=== PATIENT | female | born 1980 | race African-American/Black ===

== ENCOUNTER 2016-04-23 06:30 | Emergency (ER) | payer MEDICAID, OTHER ==
[~2016-04-23] VITALS: Ht 177.8 cm; Wt 125.0 kg
[~2016-04-23 06:30] MED LIST: CYCL-36 PO; IBUP800T23 PO; METH750T2 PO; OSEL75 PO
[2016-04-23 06:32] VITALS: BP 153/83; PULSE 73; RESP 16; TEMP 98.6; O2SAT 98
[2016-04-23 06:35] VITALS: TEMP 97.7; O2SAT 97
--- NOTE | 2016-04-23 07:38 | PD ---
HPI Chief Complaint: ENT Complaint Time Seen by Provider: 07:36 Travel History International Travel<30 days: No Contact w/Intl Traveler<30days: No Traveled to known affect area: No History of Present Illness HPI 35-year-old female presents to the emergency Department with complaint of feeling like something is deep in her throat that is painful 5 days. She said it started out as a sore throat at first. Reports voice is different. When I ask her the location of the pain she points to the lower anterior aspect of her neck. She states it feels like there is a piece of meat stuck in her throat. Reports she is able to swallow fluids and solid foods without complication such as, choking, regurgitation, vomiting, coughing. The pain is aggravated when she swallows. No known relieving factors. Denies fever, chills, nausea, vomiting. Denies recent illness of cough, nasal congestion, ear pain. She has not taken any medications or tried any treatments to alleviate her symptoms. Primary care provider is in [facility] but she doesn't remember the doctor's name. Allergies to cold medications. Denies significant past medical history. No other modifying factors or associated signs and symptoms. 0835: After discussion of treatment plan after talking to ENT the patient informed me on Tuesday, the day before onset of her symptoms, the patient vomited profusely all day, which may have caused the onset of her throat pain. PFSH Past Medical History Chest Pain: Yes Diminished Hearing: No Headaches: Yes Immunizations Current: Yes ?: Not LMP: 04/06/16 : 3 Para: 2 Miscarriage: 1 Tubal Ligation: Yes Past Surgical History Abdominal Surgery: Yes (C SECTION X 2) Section: Yes Other Surgery: Yes (csection/ tubal ligation ) Social History Alcohol Use: No Tobacco Use: Yes Substance Use: No Allergies-Medications (Allergen,Severity, Reaction): Uncoded Allergies: cold medication unknown name (Allergy, Intermediate, anxiety, 05/02/15) COLD MEDICINE (Adverse Reaction, Unknown, 05/02/15) . Reported Meds & Prescriptions Reported Meds & Active Scripts Active Magic Mouthwash Adult Liq (Multi-Ingredient Mouthwash/Gargle) 120 Ml Susp 5 Ml SWISH-SWAL ACHS PRN Each 5 mL contains: Nystatin 200,000 units, Diphenhydramine 4.25 mg, Viscous Lidocaine 10 mg, Costa syrup 0.8 mL Medrol Dosepak (Methylprednisolone) 4 Mg Dspk 4 Mg PO DIRECTED Per Pharmacist direction Review of Systems Except as stated in HPI: all other systems reviewed are Neg Physical Exam Narrative GENERAL: Well-nourished, well-developed patient, in no acute distress SKIN: Warm and dry. No rash. HEAD: Atraumatic. Normocephalic. EYES: Pupils equal and round at 3 mm with brisk reaction. No scleral icterus. No injection or drainage. PERRLA. ENT: Mucosa pink and dry. Pharynx without erythema, exudate, and edema. No Uvular edema. No uvular, palatal, or tonsillar deviation. Airway patent. Voice is hoarse. EARS: Bilateral pinnae and external canals appear within normal limits. Bilateral tympanic membranes without erythema, dullness or perforation.. NECK: Trachea midline. No Anterior cervical lymphadenopathy and tenderness. No palpable masses or lumps. CARDIOVASCULAR: Regular rate and rhythm. No murmur appreciated. 3+ radial pulses. RESPIRATORY: No accessory muscle use. Clear to auscultation. Breath sounds equal bilaterally. GASTROINTESTINAL: Abdomen soft, non-tender, nondistended. Hepatic and splenic margins not palpable. Bowel sounds are active 4 quadrants. MUSCULOSKELETAL: No obvious deformities. No clubbing. No cyanosis. No edema. BACK: No CVA tenderness. NEUROLOGICAL: Awake and alert. Oriented 3. No obvious cranial nerve deficits. Motor grossly within normal limits. Normal speech. Moves all extremities. PSYCHIATRIC: Appropriate mood and affect; insight and judgment normal. Data Data Last Documented VS Vital Signs Date Time Temp Pulse Resp B/P Pulse Ox O2 Delivery O2 Flow Rate FiO2 04/23/16 06:32 98.6 73 16 153/83 98 Room Air Orders Group A Rapid Strep Screen (04/23/16 07:29) Strep Culture (Group A) (04/23/16 07:32) Dexamethasone Inj (Decadron Inj) (04/23/16 08:45) MDM Medical Decision Making Medical Screen Exam Complete: Yes Emergency Medical Condition: Yes Medical Record Reviewed: Yes Differential Diagnosis strep pharyngitis, food bolus, mass, less likely peritonsillar abscess Narrative Course 35-year-old female with a foreign body sensation deep in her throat. She is in no acute distress and her oxygen saturation is 98% on room air. She is without wheezing, cough or stridor. She is with normal speech and speaking in full sentences. Her oropharynx is normal and without erythema, edema, exudate, and I 'm not suspicious of peritonsillar abscess. There are no palpable masses in the neck. I did a swallow evaluation at the bedside and the patient was able to swallow without regurgitation, coughing, choking, vomiting. She is afebrile and her vital signs are stable. Denies fever, chills, nausea, vomiting at home. The family is requesting imaging of the neck. I do not feel that imaging is necessary at this time, as the patient is stable and can swallow at the bedside. I spoke with my attending physician, Tricia Wilkins, and she agreed the patient is stable for outpatient follow-up and does not require imaging at this time. Rapid strep ordered to rule out strep pharyngitis. 0755: Rapid strep negative. Family requesting to speak with the doctor. 0805: Dr. Clarke came and evaluated the patient, upon family's request, and she recommended to see if we could set up outpatient follow-up for the patient within the next 1-2 days. Call placed to ENT. 0830: I spoke with Dr. Watt, ENT and he recommended to give the patient 10 mg of Decadron and a Medrol Dosepak for home, and for the patient to call his office to make an appointment for follow-up with ENT of choice. I discussed the patient and she is in agreement with plan of care. Dr. Watt's information is provided in her discharge instructions. Patient is medically cleared and stable for discharge. Discussed reasons to return to the emergency department. Instructed patient to follow up with primary care provider. Patient agrees with treatment plan. The patients vital signs are stable and the patient is stable for outpatient follow-up and treatment. Patient discharged home, stable and in no acute distress. Diagnosis Primary Impression: Sensation of foreign body in throat Referrals: Carl Watt MD Ear / Nose / Throat Specialist Primary Care Physician Patient Instructions: General Instructions Additional Instructions: Follow-up with primary care provider Follow-up with ears, nose, throat specialist Return to the emergency department immediately with worsening of symptoms, particularly with symptoms as discussed Med/Other Pt SpecificInfo: Prescription(s) given Scripts Hsshoabt-Eobkmavhwuzkibl-Gnukruorg Liq (Magic Mouthwash Adult Liq)120 Ml Susp5 Ml SWISH-SWAL ACHS PRN (SORE THROAT) #120 ML Ref 0 Each 5 mL contains: Nystatin 200,000 units, Diphenhydramine 4.25 mg, Viscous Lidocaine 10 mg, Costa syrup 0.8 mL Prov:Enid Galeano 04/23/16 Methylprednisolone Dosepak (Medrol Dosepak)4 Mg Dspk4 Mg PO DIRECTED #1 DSPK Ref 0 Per Pharmacist direction Prov:Enid Galeano 04/23/16 Disposition: 01 DISCHARGE HOME Condition: Stable Enid Galeano Apr 23, 2016 07:38
--- NOTE | 2016-04-23 08:11 | PD ---
Data Data Last Documented VS Vital Signs Date Time Temp Pulse Resp B/P Pulse Ox O2 Delivery O2 Flow Rate FiO2 04/23/16 06:32 98.6 73 16 153/83 98 Room Air Orders Group A Rapid Strep Screen (04/23/16 07:29) Strep Culture (Group A) (04/23/16 07:32) MDM Supervised Visit with LAWANDA: Yes Narrative Course The history, exam, and medical decision-making in the associated midlevel provider note were completed with my assistance. I reviewed and agree with the findings presented. I attest that I had a [id number] encounter with the patient on the same day, and personally performed and documented my assessment and findings in the medical record. *My assessment and Findings: This is a 35-year-old female who presents to the emergency department with a foreign body sensation in her throat that started on Tuesday and has been worsening over the past 4 days, constant, severe to the point where it is painful to swallow. She says she is able to swallow both liquids and solids, and she has been eating and drinking all week. She has a normal voice on exam. She is having no respiratory difficulty. She Says she feels a lump in her throat. Based on her exam I don't suspect an esophageal food bolus that she is able to handle her secretions and able to eat and drink without difficulty. I don't appreciate anything on direct exam of the posterior pharynx. I suspect she may have a superficial injury to the mucosa of the posterior pharynx giving her discomfort. She may have a small retained foreign body. I spoke with the patient and told her that the best test would be direct visualization of the posterior pharynx and possibly of the esophagus and this can all be coordinated as an outpatient. We will contact the ENT electronics utility worker and try to arrange for follow-up for this patient. I don't think she requires emergent imaging or intervention at this time. Referrals: Ear / Nose / Throat Specialist Primary Care Physician Patient Instructions: General Instructions Additional Instruction: Follow-up with primary care provider Follow-up with ears, nose, throat specialist Return to the emergency department immediately with worsening of symptoms, particularly with symptoms as discussed Scripts No Active Prescriptions or Reported Meds Disposition: 01 DISCHARGE HOME Condition: Stable Casi Skaggs MD Apr 23, 2016 08:11
[2016-04-23] MEDS ORDERED: MAGICADU2 SWISH-SWAL ×3 (08:37→10:21)
[2016-04-23] MEDS ORDERED: MEDR4PAK PO (08:37)
[2016-04-23] MEDS ORDERED: DEXAMETHASONE SOD PHOS 20 MG/5 ML VIAL IM ONE (08:45)
== END 2016-04-23 09:00 | disposition home or self-care (01) ==
LOC: NEPB 06:30
DX: R09.89 Other specified symptoms and signs involving the circulatory and respiratory systems (principal); Z72.0 Tobacco use
CPT/HCPCS: 87081; 87880; 96372; 99283; J1100

== ENCOUNTER 2016-05-31 19:22 | Emergency (ER) | payer MEDICAID ==
[~2016-05-31] VITALS: Ht 177.8 cm; Wt 122.7 kg
[~2016-05-31 19:22] MED LIST changes: -CYCL-36 PO; -IBUP800T23 PO; +MAGICADU2 SWISH-SWAL; +MEDR4PAK PO; -METH750T2 PO; -OSEL75 PO
[2016-05-31 19:24] VITALS: BP 140/72; PULSE 83; RESP 16; TEMP 98.2; O2SAT 100
[2016-06-01] MEDS ORDERED: ZOFR4TAB3 SL (00:35)
--- NOTE | 2016-06-01 00:36 | PD ---
HPI Chief Complaint: Abdominal Pain Time Seen by Provider: 00:23 Travel History International Travel<30 days: No Contact w/Intl Traveler<30days: No Traveled to known affect area: No History of Present Illness HPI This patient is 35 years old. She has had nausea vomiting and diarrhea since eating at [employer]. She had Trey sauce and reports the same thing has caused nausea vomiting and diarrhea previously. She's had no fever. She's had some mild cramping abdominal pain. She offers no genitourinary complaints. She states she is here because she needs clearance to return to work. Emesis and diarrhea are both nonbloody. PFSH Past Medical History Chest Pain: Yes Diminished Hearing: No Headaches: Yes Immunizations Current: Yes Influenza Vaccination: No ?: Not LMP: 05/29/2016 : 3 Para: 2 Miscarriage: 1 Tubal Ligation: Yes Past Surgical History Abdominal Surgery: Yes (C SECTION X 2) Section: Yes Other Surgery: Yes (csection/ tubal ligation ) Social History Alcohol Use: Yes (occasionally ) Tobacco Use: Yes Substance Use: No Allergies-Medications (Allergen,Severity, Reaction): Uncoded Allergies: cold medication unknown name (Allergy, Intermediate, anxiety, 05/02/15) COLD MEDICINE (Adverse Reaction, Unknown, 05/02/15) . Reported Meds & Prescriptions Reported Meds & Active Scripts Active Zofran Odt (Ondansetron Odt) 4 Mg Tab 4 Mg SL Q8HR PRN Review of Systems Except as stated in HPI: all other systems reviewed are Neg Physical Exam Narrative GENERAL: 35 yo F, WNWD, NAD SKIN: Warm and dry. HEAD: Atraumatic. Normocephalic. EYES: Pupils equal and round. No scleral icterus. No injection or drainage. ENT: No nasal bleeding or discharge. Mucous membranes pink and moist. NECK: Trachea midline. No JVD. CARDIOVASCULAR: Regular rate and rhythm. No murmur appreciated. RESPIRATORY: No accessory muscle use. Clear to auscultation. Breath sounds equal bilaterally. GASTROINTESTINAL: Abdomen soft, non-tender, nondistended. Hepatic and splenic margins not palpable. MUSCULOSKELETAL: No obvious deformities. No clubbing. No cyanosis. No edema. NEUROLOGICAL: Awake and alert. No obvious cranial nerve deficits. Motor grossly within normal limits. Normal speech. PSYCHIATRIC: Appropriate mood and affect; insight and judgment normal. Data Data Last Documented VS Vital Signs Date Time Temp Pulse Resp B/P Pulse Ox O2 Delivery O2 Flow Rate FiO2 05/31/16 19:24 98.2 83 16 140/72 100 Room Air Orders Ondansetron Odt (Zofran Odt) (06/01/16 00:45) MDM Medical Decision Making Medical Screen Exam Complete: Yes Emergency Medical Condition: Yes Differential Diagnosis Constipation, Gastritis, Acute Cholecystitis, Biliary Colic, Pancreatitis, TIM , Hepatitis, Bowel Obstruction, Cystitis, Mesenteric Ischemia, AAA, Appendicitis , Renal Stone/Hydronephrosis, GERD, perforated viscous Narrative Course The patient appears quite well. Her story is most consistent with a gastroenteritis type picture. She is ready for discharge. Return precautions discussed Diagnosis Primary Impression: Nausea & vomiting Qualified Code: R11.2 - Nausea and vomiting, intractability of vomiting not specified, unspecified vomiting type Additional Impression: Diarrhea Qualified Code: R19.7 - Diarrhea, unspecified type Referrals: Primary Care Physician 2 days Additional Instructions: You have a choice when it comes to health care, and we are glad that you chose [facility]. Hopefully, we have met your expectations on today's visit. You are welcome to return to [facility] at any time, as we are committed to meeting the health care needs of our community. Med/Other Pt SpecificInfo: Prescription(s) given Scripts Ondansetron Odt (Zofran Odt)4 Mg Tab4 Mg SL Q8HR PRN (Nausea/Vomiting) #15 TAB Ref 0 Prov:Perico Villalobos MD 06/01/16 Disposition: DISCHARGE HOME Condition: Stable Perico Villalobos MD Jun 01, 2016 00:36
[2016-06-01] MEDS ORDERED: ONDANSETRON ODT 4 MG TAB PO ONE (00:45)
== END 2016-06-01 00:43 | disposition home or self-care (01) ==
LOC: NEPE 19:22
DX: R11.2 Nausea with vomiting, unspecified (principal); R19.7 Diarrhea, unspecified; Z72.0 Tobacco use
CPT/HCPCS: 99283

== ENCOUNTER 2016-08-05 05:11 | Emergency (ER) | payer MEDICAID ==
[~2016-08-05] VITALS: Ht 177.8 cm; Wt 118.1 kg
[~2016-08-05 05:11] MED LIST changes: -MAGICADU2 SWISH-SWAL; -MEDR4PAK PO; +ZOFR4TAB3 SL
[2016-08-05 05:18] VITALS: BP 144/96; PULSE 84; RESP 18; O2SAT 100
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
[2016-08-05 06:20] VITALS: BP 135/76
== END 2016-08-05 06:24 | disposition home or self-care (01) ==
LOC: PHED 05:11
DX: T15.91XA Foreign body on external eye, part unspecified, right eye, initial encounter (principal); T15.92XA Foreign body on external eye, part unspecified, left eye, initial encounter; Z72.0 Tobacco use; T60.1X1A Toxic effect of halogenated insecticides, accidental (unintentional), initial encounter; Y93.89 Activity, other specified; Y92.009 Unspecified place in unspecified non-institutional (private) residence as the place of occurrence of the external cause; Y99.8 Other external cause status
CPT/HCPCS: 99283

== ENCOUNTER 2016-12-09 18:50 | Emergency (ER) | payer MEDICAID ==
[~2016-12-09] VITALS: Ht 177.8 cm; Wt 110.6 kg
[2016-12-09 19:11] VITALS: BP 135/65; PULSE 70; RESP 16; TEMP 98.8; O2SAT 97
--- NOTE | 2016-12-09 19:43 | PD ---
HPI Chief Complaint: GI Complaint Time Seen by Provider: 19:39 Travel History International Travel<30 days: No Contact w/Intl Traveler<30days: No Traveled to known affect area: No History of Present Illness HPI 36-year-old female presents to the emergency department by private transportation for complaint of 2 days of nausea vomiting diarrhea and suprapubic pressure 1-2/10 in intensity. No vaginal discharge or vaginal bleeding. The dysuria frequency urgency or flank pain. No hematuria. No fever or chills. Patient denies any recent respiratory illness. No sinus pressure drainage sore throat earache neck pain chest pain shortness of breath pleuritic pain congestion generalized abdominal pain. No hematemesis no coffee- ground emesis. No melena hematochezia. Patient denies any dietary indiscretion well water ingestion or foreign travel. No other family members with similar symptoms. Last menstrual period was at the end of September and does not have a period in October or this month November. Patient states a home test was possibly positive. Patient is 3 para 2 miss one with previous . [facility] Past Medical History Narrative Medical Headache Ab1 2 tubal ligation; occasional alcohol use tobacco use; nursing notes reviewed Chest Pain: Yes Diminished Hearing: No Headaches: Yes Immunizations Current: Yes Tetanus Vaccination: < 5 Years Influenza Vaccination: No ?: Unknown LMP: Last week of September : 3 Para: 2 Miscarriage: 1 Tubal Ligation: Yes Past Surgical History Abdominal Surgery: Yes (C SECTION X 2) Section: Yes Other Surgery: Yes (csection/ tubal ligation ) Social History Alcohol Use: Yes (occasionally ) Tobacco Use: Yes (OCC) Substance Use: No Allergies-Medications (Allergen,Severity, Reaction): Uncoded Allergies: cold medication unknown name (Allergy, Intermediate, anxiety, 05/02/15) COLD MEDICINE (Adverse Reaction, Unknown, 05/02/15) . Reported Meds & Prescriptions Reported Meds & Active Scripts Active No Active Prescriptions or Reported Medications Review of Systems Except as stated in HPI: all other systems reviewed are Neg General / Constitutional: No: Fever, Chills HENT: No: Sore Throat, Congestion Cardiovascular: No: Chest Pain or Discomfort Respiratory: No: Shortness of Breath Gastrointestinal: Positive: Nausea, Vomiting, Diarrhea, Abdominal Pain ( suprapubic pressure) Genitourinary: No: Dysuria, Flank Pain, Discharge, Vaginal Bleeding Musculoskeletal: No: Myalgias, Arthralgias Skin: No Rash Neurologic: No: Weakness Psychiatric: No: Anxiety Hematologic/Lymphatic: No: Lymph Node Enlargement Physical Exam Narrative GENERAL: Well-developed well-nourished female in no acute distress no respiratory distress SKIN: Warm and dry. HEAD: Normocephalic. EYES: No scleral icterus. No injection or drainage. NECK: Supple, trachea midline. No JVD or lymphadenopathy. CARDIOVASCULAR: Regular rate and rhythm without murmurs, gallops, or rubs. RESPIRATORY: Breath sounds equal bilaterally. No accessory muscle use. GASTROINTESTINAL: Abdomen soft, non-tender, nondistended. Pelvic exam: Normal external exam no redness no induration no lesions; speculum exam scant white mucous no blood no clots no tissue cervical os closed; bimanual exam no adnexal tenderness or mass no cervical motion tenderness no uterine enlargement or cervical os closed nontender to palpation. MUSCULOSKELETAL: No cyanosis, or edema. BACK: Nontender without obvious deformity. No CVA tenderness. Data Data Last Documented VS Vital Signs Date Time Temp Pulse Resp B/P (MAP) Pulse Ox O2 Delivery O2 Flow Rate FiO2 12/09/16 19:54 70 14 141/69 (93) 74 14 134/73 (93) 63 14 132/75 (94) 12/09/16 19:11 98.8 97 Orders Orders Urinalysis - C+S If Indicated (12/09/16 19:43) Ed Urine Pregnancytest Poc (12/09/16 19:43) Orthostatic Vital Signs (12/09/16 19:43) Ondansetron Odt (Zofran Odt) (12/09/16 20:45) Wet Prep Profile (12/09/16 20:56) Labs Laboratory Tests Test 12/09/16 19:49 Urine Color STRAW Urine Turbidity CLEAR Urine pH 7.5 Urine Specific [place] 1.015 Urine Protein NEG mg/dL Urine Glucose (UA) NEG mg/dL Urine Ketones NEG mg/dL Urine Occult Blood NEG Urine Nitrite NEG Urine Bilirubin NEG Urine Leukocyte Esterase NEG Urine WBC 0-2 /hpf Urine Squamous Epithelial Cells 0-5 /hpf Microscopic Urinalysis Comment CULT NOT INDICATED MDM Medical Decision Making Medical Screen Exam Complete: Yes Emergency Medical Condition: Yes Medical Record Reviewed: Yes Interpretation(s) POC hcg: negative Differential Diagnosis Vomiting, gastroenteritis, dehydration, electrolyte disturbance, , UTI Narrative Course [id number] hCG negative; orthostatic measurements within normal range without significant variance supine sitting standing heart rate or blood pressure and patient asymptomatic; urinalysis normal; patient given one-time dose of oral Zofran patient is tolerating oral hydration well. 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 Diagnosis Primary Impression: Gastroenteritis Additional Impression: Irregular menses Referrals: Automotive Sales Representative call for appointment Primary Care Physician call for appointment Patient Instructions: General Instructions Departure Forms: Tests/Procedures, Work Release Special Instructions: no work x 1 day Additional Instructions: Follow clear liquid diet for next 12-24 hours advance as tolerated bland/Desiree diet and regular diet Monitor temperature every 4 hours with thermometer takes acetaminophen/Tylenol as needed for fever 100.4F or greater Take ibuprofen/Advil/ Motrin per package instructions as needed for fever 100.4 F or greater or for pain associated with inflammation Takes Zofran as prescribed as needed for nausea and/or vomiting No work times one day Follow-up with your primary care provider/support merchandiser Return to the emergency department for any concerns or change in condition Med/Other Pt SpecificInfo: Prescription(s) given Scripts Ondansetron Odt (Zofran Odt) 4 Mg Tab 4 MG SL Q6HR Y for Nausea/Vomiting, #10 TAB 0 Refills Prov: Sherry Mendez MD 12/09/16 Disposition: 01 DISCHARGE HOME Condition: Stable Sherry Mendez MD Dec 09, 2016 19:43
[2016-12-09 19:54] VITALS: BP_SYST 132; BP_SYST 134; BP_SYST 141; BP_DIAS 69; BP_DIAS 73; BP_DIAS 75; RESP 14
[2016-12-09 20:05] LABS: BLOOD, URINE NEG (NEG); GLUCOSE,URINE NEG (NEG); KETONE, URINE NEG (NEG); NITRITE,URINE NEG (NEG); PH, URINE 7.5 (5.0-8.5)
[2016-12-09 20:13] LABS: URINE COLOR STRAW (YELLW/STRAW)
[2016-12-09 20:14] LABS: COMMENT (UR) CULT NOT INDICATED; CULTURE IF INDICATED CULT NOT INDICATED; SQUAMOUS EPITHELIAL CELL URINE 0-5 /hpf (0-5); WBC, URINE 0-2 /hpf (0-5)
[2016-12-09] MEDS ORDERED: ONDANSETRON ODT 4 MG TAB PO ONE (20:45)
[2016-12-09] MEDS ORDERED: ZOFR4TAB3 SL (21:10)
[2016-12-09 22:06] VITALS: BP 141/81
== END 2016-12-09 22:11 | disposition home or self-care (01) ==
LOC: PHED 18:50
DX: K52.9 Noninfective gastroenteritis and colitis, unspecified (principal); N92.6 Irregular menstruation, unspecified; F17.210 Nicotine dependence, cigarettes, uncomplicated
CPT/HCPCS: 81001; 84703; 87210; 99284